=== PATIENT | male | born 1990 | race Caucasian/White ===

== ENCOUNTER 2019-10-17 08:13 | Emergency (ER) | payer OTHER ==
[~2019-10-17] VITALS: Ht 172.7 cm; Wt 70.3 kg
== END 2019-10-17 09:00 | disposition home or self-care (01) ==
LOC: ED 08:13
PROC: 0HQ1XZZ Repair Face Skin, External Approach (ICD-10-PCS; principal; 2019-10-17)
DX: S01.511A Laceration without foreign body of lip, initial encounter (principal); V47.5XXA Car driver injured in collision with fixed or stationary object in traffic accident, initial encounter; F17.200 Nicotine dependence, unspecified, uncomplicated
CPT/HCPCS: 12013; 99283-25

== ENCOUNTER 2019-11-15 15:03 | Emergency (ER) | payer OTHER ==
[~2019-11-15] VITALS: Ht 172.7 cm; Wt 70.3 kg
[~2019-11-15 15:03] MED LIST: MOTRIN IB200 M1 PO
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
[2019-11-15] MEDS ORDERED: CYCLOBENZAPRINE10 MG PO (15:30)
== END 2019-11-15 15:47 | disposition home or self-care (01) ==
LOC: ED 15:03
DX: S39.012A Strain of muscle, fascia and tendon of lower back, initial encounter (principal); X50.9XXA Other and unspecified overexertion or strenuous movements or postures, initial encounter; F17.200 Nicotine dependence, unspecified, uncomplicated
CPT/HCPCS: 99283